=== PATIENT | male | born 2000 | race Caucasian/White ===

== ENCOUNTER 2023-01-24 06:01 | Emergency (ER) | payer SELFPAY ==
[2023-01-24 06:05] VITALS: BP 115/57; PULSE 82; RESP 15; TEMP 36.6; O2SAT 100
[2023-01-24 06:12] VITALS: PULSE 71
[2023-01-24 06:13] VITALS: RESP 12
--- NOTE | 2023-01-24 06:44 | ED.GENADULT ---
HPI - General Adult General Chief complaint: Overdose Stated complaint: altered mental status Time Seen by Provider: 01/24/23 06:11 History of Present Illness HPI narrative: 22-year-old male presented to the emergency department for evaluation after being found sleeping in his car. Police reported they were having difficulty arousing him. Upon arrival to emergency patient alert and oriented and not somnolent. Patient denies using any narcotics. Patient states he does smoke marijuana but denies any recent smoking marijuana. Patient denies any complaints at this time. Patient denies any significant past medical history. Related Data Allergies Allergy/AdvReac Type Severity Reaction Status Date / Time No Known Allergies Allergy Verified 01/24/23 06:12 Review of Systems Review of Systems: All systems reviewed & are unremarkable except as noted in HPI and below PMFSH Social History Social History Substance use type: marijuana Exam Narrative: APPEARANCE: Well appearing, no pain, no distress, well-nourished. HEAD: normocephalic, atraumatic. EYES: PERRLA/EOMI, conjunctivae clear. NOSE: Normal no drainage NECK: Supple. No adenopathy, no masses. RESPIRATORY: Airway patent, respirations nonlabored. Clear to auscultation bilaterally, no rales, rhonchi, wheezing. CARDIOVASCULAR: Regular rate and rhythm without murmurs rubs or gallops. ABDOMINAL: Soft, nontender, nondistended, normal bowel sounds MUSCULOSKELETAL: Moves all extremities. Strength/ROM intact, No edema, No calf tenderness. NEURO: Alert. Cranial nerves II through XII intact. Grossly intact SKIN: Warm, dry. Normal Color Course Course Emergency Course: 22-year-old male presented the emergency department for evaluation of somnolence. Patient is alert oriented and well-appearing. Patient denies any complaints. Patient was able to ambulate in the emergency department without issue. Patient has not somnolent anymore. Patient prefers to be discharged to home. Vital Signs Vital signs: Vital Signs Temperature 97.9 F 01/24/23 06:05 Pulse Rate 82 01/24/23 06:05 Respiratory Rate 15 01/24/23 06:05 Blood Pressure 115/57 L 01/24/23 06:05 Pulse Oximetry 100 01/24/23 06:05 Oxygen Delivery Room Air 01/24/23 06:05 Temperature 97.9 F 01/24/23 06:05 Pulse Rate 71 01/24/23 06:12 Respiratory Rate 12 01/24/23 06:13 Blood Pressure 115/57 L 01/24/23 06:05 Pulse Oximetry 100 01/24/23 06:05 Oxygen Delivery Room Air 01/24/23 06:05 Medical Decision Making Vital Signs Vital Signs: Vital Signs Temperature 97.9 F 01/24/23 06:05 Pulse Rate 82 01/24/23 06:05 Respiratory Rate 15 01/24/23 06:05 Blood Pressure 115/57 L 01/24/23 06:05 Pulse Oximetry 100 01/24/23 06:05 Oxygen Delivery Room Air 01/24/23 06:05 Temperature 97.9 F 01/24/23 06:05 Pulse Rate 71 01/24/23 06:12 Respiratory Rate 12 01/24/23 06:13 Blood Pressure 115/57 L 01/24/23 06:05 Pulse Oximetry 100 01/24/23 06:05 Oxygen Delivery Room Air 01/24/23 06:05 Discharge Plan Discharge Clinical Impression: Somnolence Patient Disposition: Home, Self-Care Condition: Stable Instructions: Antibiotic Form Additional Instructions: Have close follow-up with your primary care physician. If you have any worsening symptoms please call or return to the emergency department. Follow-up/Referrals: PHYSICIAN NOT ON STAFF,NONSTAFF [Primary Care Provider] -
--- NOTE | 2023-01-24 07:03 | PC.NURSE ---
Called pamela at [phone] and left voicemail for her to call back BLAZE.
[2023-01-24 07:26] VITALS: BP 126/63; PULSE 67; RESP 16; O2SAT 98
[2023-01-24 08:32] VITALS: BP 136/88; PULSE 85; RESP 15; O2SAT 100
== END 2023-01-24 09:57 | disposition home or self-care (01) ==
PROVIDERS: Emergency Provider Emergency Medicine
DX: R40.0 Somnolence (principal)
CPT/HCPCS: 99281